=== PATIENT | male | born 1960 | race Caucasian/White ===

== ENCOUNTER 2018-07-07 07:21 | Day surgery (SDC) | payer BC ==
[2018-07-05 15:36] VITALS: BMI 29.0
[~2018-07-07 07:21] MED LIST: LACTATED RINGERS 1,000 ML IV SCH
[2018-07-07 07:36] VITALS: RESP 16; TEMP 97.2
[2018-07-07] MEDS ORDERED: PROPOFOL 10 MG/ML 20 ML VIAL IV ONE (08:09)
[2018-07-07] MEDS ORDERED: fentaNYL (PF) 50 MCG/ML 2 ML AMP ONE (08:09)
[2018-07-07] MEDS ORDERED: MIDAZOLAM 2 MG/2 ML VIAL ONE (08:09)
--- NOTE | 2018-07-07 08:12 | P.GSHP ---
History of Present Illness H&P Date: 07/07/18 Chief Complaint: Screening colonoscopy This a 58-year-old male who presents today for screening colonoscopy. Patient denies any significant GI complaints. Past Medical History Past Medical History: Hypertension History of Any Multi-Drug Resistant Organisms: None Reported Additional Past Surgical History / Comment(s): COLONOSCOPY Past Anesthesia/Blood Transfusion Reactions: No Reported Reaction Smoking Status: Never smoker - Past Family History Sister(s) Family Medical History: Cancer Additional Family Medical History / Comment(s): 2 SISTERS WITH "FEMALE TYPE CANCERS" Medications and Allergies Home Medications Medication Instructions Recorded Confirmed Type Losartan Potassium 100 mg PO DAILY 07/05/18 07/07/18 History Allergies Allergy/AdvReac Type Severity Reaction Status Date / Time Iodinated Contrast- Oral and Allergy Anaphylaxis Verified 07/07/18 07:35 IV Dye Surgical - Exam Vital Signs Temp Pulse Resp BP Pulse Ox 97.2 F L 58 L 16 135/78 99 07/07/18 07:35 07/07/18 07:35 07/07/18 07:35 07/07/18 07:35 07/07/18 07:35 - General well developed, well nourished, no distress - Eyes PERRL - ENT normal pinna - Neck no masses - Respiratory normal expansion - Cardiovascular Rhythm: regular - Abdomen Abdomen: soft, non tender Assessment and Plan Assessment: We'll perform screening colonoscopy.
--- NOTE | 2018-07-07 08:22 | P.OP ---
Date of Procedure: 07/07/18 Preoperative Diagnosis: Screening colonoscopy Postoperative Diagnosis: External hemorrhoids Procedure(s) Performed: Colonoscopy Anesthesia: MAC Surgeon: Bowen Aguilar Pathology: none sent Condition: stable Disposition: PACU Description of Procedure: PROCEDURE: The patient was placed on the endoscopy table in the lateral position. Digital rectal examination was performed which revealed external hemorrhoids. The prostate was symmetrical without nodules. Flexible colonoscope was then placed in the patient's anus and passed throughout the entire colon. The ileocecal valve was visualized. The cecum, ascending, transverse, descending and sigmoid colon were normal. The rectum was normal as well. There were no masses, polyps or diverticula noted in the entire colon.
[2018-07-07 09:06] VITALS: BP 121/86; PULSE 76
== END 2018-07-07 09:11 | disposition home or self-care (01) ==
LOC: ORWHC2ENDO 07:21
PROVIDERS: ATTEND Surgery
DX: Z12.11 Encounter for screening for malignant neoplasm of colon (principal); I10 Essential (primary) hypertension; K64.4 Residual hemorrhoidal skin tags; Z88.8 Allergy status to other drugs, medicaments and biological substances
CPT/HCPCS: G0121; J2250; J3010; J2704; 45378

== ENCOUNTER → 2019-10-29 | Outpatient (CLI) | payer OTHER ==
--- NOTE | 2019-10-29 16:55 | XR ---
EXAMINATION TYPE: XR hand complete LT DATE OF EXAM: 10/29/2019 COMPARISON: NONE HISTORY: Pain TECHNIQUE: 3 views FINDINGS: The metacarpals are intact. I see no fracture nor dislocation. Joint spaces are normal. IMPRESSION: Negative left hand exam. No fracture seen. Middle finger appears intact.
== END | disposition home or self-care (01) ==
LOC: RAD 16:25
PROVIDERS: ATTEND Emergency Medicine
DX: S67.193A Crushing injury of left middle finger, initial encounter (principal)

== ENCOUNTER → 2020-05-16 | Outpatient (CLI) | payer OTHER ==
--- NOTE | 2020-05-16 10:42 | XR ---
EXAMINATION TYPE: XR shoulder complete LT DATE OF EXAM: 05/16/2020 Comparison: 06/29/2012 Clinical History: 60-year-old male [id number] Findings: Moderate to severe degenerative change at the AC joint with joint space narrowing and subchondral scl erosis. Subacromial space is preserved. No tendinous or bursal calcification . Smooth delineation to the greater tuberosity. No acute fracture, subluxation, dislocation. Impression: Moderate to severe AC joint OA. No acute osseous abnormality seen.
== END | disposition home or self-care (01) ==
LOC: RADXRMAIN 10:12
PROVIDERS: ATTEND Emergency Medicine
DX: M19.012 Primary osteoarthritis, left shoulder (principal)

== ENCOUNTER → 2022-12-16 | Outpatient (CLI) | payer BC ==
--- NOTE | 2022-12-16 11:46 | CA ---
Lexiscan Nuclear Stress Test Report Name: Lucius Tejada Exam Date: 12/16/2022 10:04 Exam Location: [facility] Ht (in): Wt (lb): BSA: Ordering Phys: Claudia Townsend DO Referring Phys: Rosalie Bolden Technologist: KENNY,, Age: 62 Gender: M : 1960 Procedure CPT: Indications: R07.9 CHEST PAIN I10 HTN ICD-10 Codes: Patient History: Chest Pain Medications: Meds past 24 hrs: Pretest Chest Pain: STRESS TEST Lexiscan Protocol Exercise Duration (min:sec): 02:[address] Depressions (mm): Angina Score: Rees Score: Resting HR (bpm): 56 Peak HR (bpm): 80 Resting BP (mmHg): 122 / 81 Peak BP (mmHg): 147 / 86 MPHR: 160 Target HR: 136 % MPHR: 50 METS: 1.0 Total Dose: Peak Dose: Atropine: Double Product: [id number] BP Response: Stress Termination: Infusion complete Stress Symptoms: No chest pain or symptoms Stress Summary: ECG ANALYSIS Resting ECG: Sinus rhythm. Normal conduction. No arrhythmias. Normal repolarization. Stress ECG: No ECG changes from baseline with Lexiscan infusion. CONCLUSIONS No ECG evidence of ischemia with Lexiscan infusion. Nuclear test results to follow. Dr. James Sanchez MD (Electronically Signed) Final Date: 16 December 2022 11:45
--- NOTE | 2022-12-16 13:02 | NM ---
EXAMINATION TYPE: NM stress lexiscan cardiolite DATE OF EXAM: 12/16/2022 COMPARISON: NONE CLINICAL INDICATION: Male, 62 years old with history of R07.9 CHEST PAIN I10 HTN; TECHNIQUE: After the intravenous administration of 9.64 mCi Tc 99m Sestamibi - Cardiolite resting SP ECT images acquired 45 minutes post injection. The patient received 0.4mg Lexiscan, 25.5 mCi Tc 99m Sestamibi - Stress images obtained [address] injection FINDINGS: Review of stress and rest SPECT images demonstrates no distinct perfusion abnormality. Gated analysi s shows normal wall motion with an estimated left ventricular ejection fraction of 62 %. IMPRESSION: No scintigraphic evidence for reversible ischemia.
== END | disposition home or self-care (01) ==
LOC: RADNMMAIN 08:24
PROVIDERS: ATTEND Family Medicine
DX: I10 Essential (primary) hypertension (principal); R07.9 Chest pain, unspecified
CPT/HCPCS: 93017; 78452; A9500